=== PATIENT | female | born 1970 | race Caucasian/White ===

== ENCOUNTER → 2017-05-03 | Outpatient (CLI) | payer OTHER | LOC: FIMAGING 14:53 | PROVIDERS: ATTEND Nurse Practitioner Adult Health | DX: Z12.31 Encounter for screening mammogram for malignant neoplasm of breast (principal) | CPT/HCPCS: G0202 ==

== ENCOUNTER → 2018-05-09 | Outpatient (CLI) | payer OTHER | LOC: FIMAGING 14:11 | DX: Z12.31 Encounter for screening mammogram for malignant neoplasm of breast (principal) ==